=== PATIENT | female | born 1975 | race Hispanic/Latino ===

== ENCOUNTER 2017-03-31 05:44 | Inpatient (IN) | payer OTHER ==
[~2017-03-31] VITALS: Ht 157.5 cm; Wt 78.9 kg
[2017-03-31] VITALS (12 sets, daily range): BP systolic 106–136; BP diastolic 48–77
[~2017-03-31 05:44] MED LIST: NO HOME MEDS
[2017-03-31 06:01] LABS: URINE BILIRUBIN - DIPSTICK NEGATIVE (NEGATIVE); URINE BLOOD DIPSTICK MODERATE (NEGATIVE); URINE CLARITY TURBID; URINE COLOR YELLOW; URINE GLUCOSE - DIPSTICK NEGATIVE (NEGATIVE); URINE KETONE NEGATIVE (NEGATIVE); URINE NITRITE - DIPSTICK NEGATIVE (Negative); URINE PH 6.5 (4.5-8.0); URINE PROTEIN - DIPSTICK NEGATIVE (NEG-TRACE); URINE UROBILINOGEN - DIPSTICK 0.2 E.U./dL (0.2)
[2017-03-31 06:02] LABS: URINE LEUK ESTERASE SMALL (NEGATIVE)
[2017-03-31 06:11] LABS: URINE BACTERIA FEW hpf; URINE SQUAMOUS EPITHELIAL CELL FEW EPI/hpf (0-FEW)
[2017-03-31 06:17] LABS: BARBITURATES NEGATIVE (NEGATIVE); COCAINE NEGATIVE (NEGATIVE); METHADONE NEGATIVE (NEGATIVE); OXCYCODONE NEGATIVE (NEGATIVE); TETRAHYDROCANNABIONOL NEGATIVE (NEGATIVE); TRICYLIC ANTIDEPRESSANTS NEGATIVE (NEGATIVE)
--- NOTE | 2017-03-31 06:38 | NUR ---
PT MOVED TO BIRTHING ROOM #1, AMBULATORY.
--- NOTE | 2017-03-31 06:42 | NUR ---
DR. BIGGS AT BEDSIDE, SVE DONE, 7/100%/0. DISCUSSED PLAN OF CARE WITH PT, PT VERBALIZED UNDERSTANDING.
[2017-03-31 06:46] LABS: HEMATOCRIT 37.2 % (37.0-47.0); HEMOGLOBIN 12.3 g/dl (12.0-16.0); IMMATURE GRANULOCYTES 0.6 % (0.0-1.0); MEAN CELL VOLUME 86.3 fL CALC (80.0-100.0); MEAN CORPUSCULAR HGB 28.5 pG CALC (26.0-32.0); MEAN CORPUSCULAR HGB CONC 33.1 g/L CALC (32.0-36.0); NEUT# 5.96 thou/uL (2.00-7.15); RED BLOOD COUNT 4.31 mill/uL (4.20-5.60); RED CELL DISTRI WIDTH 16.2 % (11.5-15.5)
--- NOTE | 2017-03-31 06:48 | NUR ---
PT REPOSITIONED TO LEFT TILT WITH PEANUT BALL UNDER RIGHT LEG. RATES PAIN 10/10, PAIN MEDICATION OFFERED, BUT PT DECLINED.
[2017-03-31 06:56] LABS: ALBUMIN 3.6 g/dL (3.2-5.0); ALKALINE PHOSPHATASE 140 u/l (38-126); ANION GAP 13 (6-22 (CALC)); BILIRUBIN, TOTAL 0.4 mg/dL (0.0-1.4); BUN 6 mg/dL (7-17); BUN/CREATININE RATIO 15 (12-20 (CALC)); CARBON DIOXIDE 20 mmol/l (22-30); CHLORIDE 109 mmol/l (95-108); CREATININE 0.4 mg/dL (0.5-1.0); GFR > 60 ML/MIN (>=60 (CALC)); GFR FOR AFR.AMER. > 60 ML/MIN (>=60 (CALC)); GLUCOSE 94 mg/dL (65-105); SGOT/AST 12 u/l (14-36); SGPT/ALT 28 u/l (9-52); SODIUM 138 mmol/l (137-146); TOTAL PROTEIN 6.4 g/dL (6.3-8.2)
--- NOTE | 2017-03-31 07:30 | NUR ---
PT REPOSITIONED TO RIGHT TILT WITH PEANUT BALL UNDER RIGHT LEG. PT IS TEARFUL, CRYING. OFFERED PAIN MEDICATION, BUT DECLINES. PT REASSURED, BREATHING WELL WITH CONTRACTIONS. SIGNIFICANT OTHER AT BEDSIDE.
--- NOTE | 2017-03-31 07:54 | NUR ---
PT UP TO BATHROOM, VOIDED 50 ML. THEN STATES "BABY IS COMING OUT". ASSISTED BACK TO BED. SVE DONE, COMPLETE WITH BULGING BAG. DR. BIGGS CALLED FOR DELIVERY.
--- NOTE | 2017-03-31 08:00 | NUR ---
DR. BIGGS AT BEDSIDE, SVE DONE, PREPPING FOR .
--- NOTE | 2017-03-31 08:01 | NUR ---
PT SROM AT THIS TIME FOR CLEAR FLUID.
--- NOTE | 2017-03-31 08:04 | NUR ---
OF MALE INFANT. SEE DELIVERY ROOM RECORD FOR DOCUMENTATION.
--- NOTE | 2017-03-31 08:07 | NUR ---
PLACENTA OUT AT THIS TIME. 20 UNITS OF PITOCIN IN LR INFUSING AT BOLUS RATE PER MD. SEE FUNDAL CHECKS FOR FURTHER DOCUMENTATION.
--- NOTE | 2017-03-31 08:45 | NUR ---
PT , POSITIVE BONDING, STABLE, DENIES ANY PAIN OR NEEDS.
--- NOTE | 2017-03-31 09:10 | NUR ---
PT ASSISTED TO BATHROOM, VOIDED, PERICARE DONE, PANTIES AND PADS PLACED, GOWN CHANGED. PT TRANSFERED TO ROOM 207 VIA WHEELCHAIR IN STABLE CONDITION. DENIES ANY PAIN. ORIENTED TO NEW ROOM, AND TEACHING DONE. BREAKFAST TRAY PROVIDED. DENIES ANY NEEDS. PT TOLERATED ACTIVITY WELL.
--- NOTE | 2017-03-31 10:36 | NUR ---
MEDICATED WITH MOTRIN FOR CRAMPING PAIN. DENIES ANY OTHER NEEDS.
--- NOTE | 2017-03-31 11:20 | NUR ---
PT RESTING IN BED, STABLE, DENIES ANY PAIN OR NEEDS AT THIS TIME, CARING FOR , POSITIVE BONDING.
--- NOTE | 2017-03-31 14:00 | NUR ---
PT RESTING, DENIES ANY PAIN OR NEEDS AT THIS TIME.
--- NOTE | 2017-03-31 18:05 | NUR ---
PT SITTING UP, VISITING WITH FAMILY. VS DONE, STABLE, DENIES ANY PAIN OR NEEDS.
--- NOTE | 2017-03-31 18:50 | NUR ---
Bedside report with Gia Zuñiga RN, initial shift assessment completed. Pt states pain 0/10 because she "drank a Tylenol earlier". Pt medicated with Motrin 600 mg PO. Pt bonding well with baby, discussed that she would like to bottle feed while in the hospital and take a shower tomorrow. Pt plans on DC home tomorrow. Fundus firm at 1/U, light rubra lochia without clots, IV removed with catheter intact. Pt stable.
--- NOTE | 2017-03-31 18:55 | NUR ---
BEDSIDE REPORT GIVEN TO Linda CORONADO RN.
--- NOTE | 2017-04-01 01:39 | NUR ---
Pt medicated with Motrin for abdominal pain 08/07. Pt has watched all videos, would like baby to go to nursery so she can rest awhile. Infant taken to nursery.
--- NOTE | 2017-04-01 05:05 | NUR ---
PT RESTING IN BED HOLDING . DENIES PAIN. CBC DRAWN FROM RIGHT AC USING #23 BUTTERFLY NEEDLE X1 ATTEMPT. PT TOLERATED WELL. POC REVIEWED. CALL LIGHT IN REACH. PT DENIES NEEDS.
[2017-04-01 05:15] LABS: HEMATOCRIT 33.4 % (37.0-47.0); HEMOGLOBIN 10.9 g/dl (12.0-16.0); IMMATURE GRANULOCYTES 0.6 % (0.0-1.0); MEAN CELL VOLUME 87.7 fL CALC (80.0-100.0); MEAN CORPUSCULAR HGB 28.6 pG CALC (26.0-32.0); MEAN CORPUSCULAR HGB CONC 32.6 g/L CALC (32.0-36.0); NEUT# 5.12 thou/uL (2.00-7.15); RED BLOOD COUNT 3.81 mill/uL (4.20-5.60); RED CELL DISTRI WIDTH 16.4 % (11.5-15.5)
--- NOTE | 2017-04-01 08:00 | NUR ---
PATIENT SITTING IN BED AWAKE. ASSESSMENT DONE CHARTED. DENIES PAIN. NO OTHER CONCERNS VERBALISED. SEEN BY MD AND DISCHARGE ORDERS RECEIVED.
[2017-04-01 08:07] VITALS: BP 103/57
[2017-04-01] MEDS ORDERED: IBUPROFEN600 MG PO (09:25)
--- NOTE | 2017-04-01 12:00 | NUR ---
IN ROOM WITH INFANT. OFFERS NO CONCERNS. LUNCH GIVEN.
--- NOTE | 2017-04-01 14:15 | NUR ---
Discharge instructions given. Patient verbalizes understanding of same. Discharged in stable condition via Wheelchair to Home with significant other. All belongings sent with pt. WILL FOLLOW UP IN 4 WEEKS. HAS PRESCRIPTION FOR MOTRIN.
== END 2017-04-01 14:15 | disposition home or self-care (01) | DRG 775 ==
LOC: OBOP 05:44 → OB 05:44 → OBOP 06:14 → OB 06:36
PROC: 10E0XZZ Delivery of Products of Conception, External Approach (ICD-10-PCS; principal; 2017-03-31)
DX: O80 Encounter for full-term uncomplicated delivery (principal); Z37.0 Single live birth; Z3A.39 39 weeks gestation of pregnancy